=== PATIENT | female | born 1965 | race Caucasian/White ===

== ENCOUNTER 2016-08-15 09:55 | Outpatient (CLI) ==
--- NOTE | 2016-08-15 16:32 | MRI ---
EXAM: Lumbar spine MRI without contrast. HISTORY: Chronic back pain with left sciatica. COMPARISON: None. TECHNIQUE: Multiplanar, multisequence MR images were acquired of the lumbar spine without contrast. FINDINGS: Five lumbar-type vertebra are present. The lumbar vertebra are normal in height, alignme nt and intrinsic bone marrow signal. There is mild endplate irregularity from T11-12 to L2-3 with c hronic Schmorl's nodes from T11 to L2. There is disc space narrowing and disc desiccation at T11-12 . Minor lumbar ventral spondylosis is present. Conus medullaris ends at T12-L1 and has normal sign al intensity. Canal diameter is developmentally narrow. The visualized liver, spleen, adrenal glands and kidneys are unremarkable. There are no paravertebr al masses. T12-L1: There is a small right posterolateral disc protrusion that mildly effaces the right lateral recess. There is no central canal stenosis or foraminal stenosis. L1-2: The intervertebral disc is normal. L2-3: There is a minor physiologic disc bulge which minimally narrows the inferior neural foramina bilaterally. L3-4: There is a minor disc bulge which narrows the inferior neural foramina bilaterally. Mild clifford ateral hypertrophic facet arthropathy and ligamentum flavum hypertrophy is present. In this patient with a developmentally narrow canal, these findings cause minor right and mild left neural foramina l stenosis. L4-5: The intervertebral disc is normal. There is minor right and mild left hypertrophic facet art hropathy and mild bilateral ligamentum flavum hypertrophy. This produces triangulation of the theca l sac and mild left neural foraminal stenosis. L5-S1: The intervertebral disc is normal. IMPRESSION: 1. Small right posterolateral disc protrusion T12-L1. 2. Mild degenerative endplate changes from T11-12 to L2-3 with small chronic Schmorl's nodes from T 11-L2. 3. No central canal stenosis or pars interarticularis defects.
== END 2016-08-15 09:56 | disposition home or self-care (01) ==
LOC: RAD 09:55
PROVIDERS: ATTEND Family Medicine
DX: M54.40 Lumbago with sciatica, unspecified side (principal); M54.16 Radiculopathy, lumbar region; G89.29 Other chronic pain

== ENCOUNTER 2017-03-24 10:14 | Outpatient (CLI) ==
--- NOTE | 2017-03-24 15:26 | MRI ---
EXAM: MRI right knee without contrast. HISTORY: Right knee pain. Swelling. Knot back of knee. No right knee surgery reported. TECHNIQUE: Using a local extremity coil on a high field strength magnet multiplanar multisequence ma gnet resonance imaging was performed of the right knee without intravenous or intra-articular gadolin ium contrast. FINDINGS: I do not have prior radiographs of the right knee available for comparison at the time of this dictation. Within the medial compartment there is tear along the undersurface of the inner margin posterior horn . This shows horizontal cleavage extent. The medial compartment cartilage relatively congruent with out focal underlying subchondral edema. Early productive osteophyte formation. Within the lateral compartment lateral meniscus is intact without discrete surfacing meniscal tear. Lateral compartment cartilage congruent without focal underlying subchondral edema. Early productive osteophyte formation. Within the patellofemoral compartment the patella seated with intact patellar attachment of the media l and lateral patellar retinaculum. Marked patellar chondrosis/chondromalacia patella. Specifically there is a 13 mm area of chondrosis and cartilage ulceration extending from median ridge over the me dial facet with underlying subchondral edema/cyst formation. Corresponding 9 mm of chondrosis and ca rtilage ulceration over the medial trochlea with some chondrosis over the superior central trochlear groove. Productive osteophyte formation patellofemoral compartment. Small right knee effusion. No osteochondral loose bodies. Intact anterior and posterior cruciate li gament fibers. The extensor mechanism is intact. The medial collateral ligament intact albeit bowed medially. The lateral collateral ligament complex intact as is the posterolateral corner. Moderate sized posterior joint extension/popliteal cyst measuring 42 mm craniocaudad by 29 mm transverse. Th ere is a small extracapsular synovial/ganglion cyst over the posterior medial corner adjacent.. IMPRESSION: Tear undersurface inner margin posterior horn medial meniscus. Horizontal cleavage exte nt. 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 Small right knee effusion. Intact cruciate and collateral ligaments. Moderate sized posterior joint extension/popliteal cyst. Small extracapsular synovial/ganglion cyst over the posteromedial corner adjacent.
== END 2017-03-24 10:15 | disposition home or self-care (01) ==
LOC: RAD 10:14
PROVIDERS: ATTEND Physician Assistant Medical
DX: M25.561 Pain in right knee (principal)